=== PATIENT | female | born 1990 | race Caucasian/White ===

== ENCOUNTER 2017-12-16 19:51 | Inpatient (IN) | payer OTHER ==
[2017-12-16] MEDS ORDERED: NACL 0.9% 3 ML SYG IV (21:00)
[2017-12-16] MEDS ORDERED: ALBUTEROL/IPRATROPIUM (NEB) 3 ML AMP HHN (21:00)
[2017-12-16] MEDS: DEXTROSE 5%-0.45% NACL 1,000 ML IV (21:37)
[2017-12-16] MEDS: FAMOTIDINE 20 MG INJ IV (21:45)
[2017-12-16] MEDS: metroNIDAZOLE 500 MG/NS (PMX) 100 ML IVPB (21:46)
[2017-12-16] MEDS: CIPROFLOXACIN 400MG/D5W 200 ML IVPB (22:42)
[2017-12-16] MEDS: ONDANSETRON 4 MG INJ IV (23:53)
[2017-12-16] MEDS: morphine 2 MG INJ IV (23:54)
[2017-12-16 23:58] LABS: ADD UMIC YES; UR ASCORBIC ACID NEGATIVE (NEGATIVE); UR BILIRUBIN (Dip) NEGATIVE (NEGATIVE); UR BLOOD (Dip) NEGATIVE (NEGATIVE); UR CLARITY CLEAR (CLEAR); UR COLOR YELLOW (YELLOW); UR GLUCOSE (Dip) NEGATIVE (NEGATIVE); UR KETONES (Dip) NEGATIVE (NEGATIVE); UR LEUKOCYTE ESTERASE (Dip) TRACE Leu/ul (NEGATIVE); UR NITRITE (Dip) NEGATIVE (NEGATIVE); UR RBC 2 /HPF (0-5); UR SQUAMOUS EPITHELIAL CELL FEW /HPF (FEW); UR TOTAL PROTEIN (Dip) NEGATIVE (NEGATIVE); UR UROBILINOGEN (Dip) NEGATIVE (NEGATIVE); UR WBC 0 /HPF (0-5)
[2017-12-17 05:14] LABS: ADD MAN DIFF? NO
[2017-12-17 05:28] LABS: WHITE BLOOD COUNT 8.3 10^3/ul (4.8-10.8)
[2017-12-17 05:28] LABS: BASOPHILS % 0.5 % (0.0-2.0); EOSINOPHILS # 0.4 10^3/ul (0.0-0.5); EOSINOPHILS % 4.2 % (0.0-7.0); HEMATOCRIT 40.7 % (37.0-47.0); HEMOGLOBIN 13.2 g/dl (12.0-16.0); LYMPHOCYTES # 2.3 10^3/ul (0.8-2.9); LYMPHOCYTES % 28.2 % (15.0-51.0); MEAN CORPUSCULAR HEMOGLOBIN 28.1 pg (29.0-33.0); MEAN CORPUSCULAR HGB CONC 32.4 g/dl (32.0-37.0); MEAN CORPUSCULAR VOLUME 86.6 fl (82.0-101.0); MEAN PLATELET VOLUME 10.5 fl (7.4-10.4); MONOCYTE # 0.6 10^3/ul (0.3-0.9); MONOCYTES % 6.8 % (0.0-11.0); NEUTROPHILS % 60.1 % (39.0-77.0); PLATELET COUNT 262 10^3/UL (140-415); RED CELL DISTRIBUTION WIDTH 12.5 % (11.5-14.5)
[2017-12-17] MEDS: metroNIDAZOLE 500 MG/NS (PMX) 100 ML IVPB (05:50)
[2017-12-17 06:13] LABS: ALANINE AMINOTRANSFERASE 47 IU/L (13-69); ALBUMIN/GLOBULIN RATIO 1.37; ALKALINE PHOSPHATASE 88 IU/L (42-121); ANION GAP 15 (8-16); ASPARTATE AMINO TRANSFERASE 27 IU/L (15-46); BILIRUBIN,INDIRECT 0.6 mg/dl (0-1.1); BILIRUBIN,TOTAL 0.6 mg/dl (0.2-1.3); BLOOD UREA NITROGEN 10 mg/dl (7-20); CALCIUM 8.3 mg/dl (8.4-10.2); CARBON DIOXIDE 28 mmol/L (21-31); CHLORIDE 101 mmol/L (97-110); CREATININE 0.68 mg/dl (0.44-1.00); GLUCOSE 99 mg/dl (70-220); MAGNESIUM 1.9 mg/dl (1.7-2.5); SODIUM 140 mmol/L (135-144); TOTAL PROTEIN 6.9 g/dl (6.1-8.1)
[2017-12-17] MEDS: DEXTROSE 5%-0.45% NACL 1,000 ML IV ×3 (07:00→22:31)
[2017-12-17] MEDS: FAMOTIDINE 20 MG INJ IV ×2 (08:20→20:20)
[2017-12-17] MEDS: ERTAPENEM SODIUM 1 GM in SOD CHLORIDE 0.9% 100 ML IVPB (12:14)
[2017-12-17] MEDS: SOD CHLORIDE 0.9% 100 ML (13:33)
[2017-12-17] MEDS: IOHEXOL 300MG/ML 150 ML BTL (13:33)
[2017-12-18 05:15] LABS: ADD MAN DIFF? NO
[2017-12-18 05:19] LABS: WHITE BLOOD COUNT 8.6 10^3/ul (4.8-10.8)
[2017-12-18 05:19] LABS: BASOPHIL # 0.1 10^3/ul (0.0-0.1); BASOPHILS % 0.7 % (0.0-2.0); EOSINOPHILS # 0.4 10^3/ul (0.0-0.5); EOSINOPHILS % 4.4 % (0.0-7.0); HEMATOCRIT 40.6 % (37.0-47.0); HEMOGLOBIN 13.2 g/dl (12.0-16.0); LYMPHOCYTES # 1.8 10^3/ul (0.8-2.9); LYMPHOCYTES % 20.7 % (15.0-51.0); MEAN CORPUSCULAR HGB CONC 32.5 g/dl (32.0-37.0); MEAN PLATELET VOLUME 10.4 fl (7.4-10.4); MONOCYTE # 0.6 10^3/ul (0.3-0.9); MONOCYTES % 6.8 % (0.0-11.0); NEUTROPHIL # 5.8 10^3/ul (1.6-7.5); NEUTROPHILS % 66.9 % (39.0-77.0); PLATELET COUNT 276 10^3/UL (140-415); RED BLOOD COUNT 4.72 10^6/ul (4.20-5.40); RED CELL DISTRIBUTION WIDTH 12.4 % (11.5-14.5)
[2017-12-18 05:33] LABS: ANION GAP 17 (8-16); BLOOD UREA NITROGEN 8 mg/dl (7-20); CALCIUM 8.7 mg/dl (8.4-10.2); CARBON DIOXIDE 26 mmol/L (21-31); CHLORIDE 102 mmol/L (97-110); CREATININE 0.65 mg/dl (0.44-1.00); GLUCOSE 102 mg/dl (70-220); POTASSIUM 3.9 mmol/L (3.5-5.1); SODIUM 141 mmol/L (135-144)
[2017-12-18] MEDS: FAMOTIDINE 20 MG INJ IV ×2 (08:26→21:04)
[2017-12-18] MEDS: ERTAPENEM SODIUM 1 GM in SOD CHLORIDE 0.9% 100 ML IVPB (12:30)
[2017-12-18] MEDS ORDERED: morphine LIQ (10 MG/5 ML) CUP PO (15:00)
[2017-12-18] MEDS: DEXTROSE 5%-0.45% NACL 1,000 ML IV ×2 (15:13→23:00)
[2017-12-19 06:24] LABS: CHOLESTEROL 127 mg/dl (100-200)
[2017-12-19 06:24] LABS: CHOL/HDL RATIO 3.5 RATIO; HDL CHOLESTEROL 36 mg/dl (33-83); LDL CHOLESTEROL,CALCULATED 77 mg/dl; TRIGLYCERIDES 70 mg/dl (0-149)
[2017-12-19 07:10] LABS: HEMOGLOBIN A1C 5.7 % (0-5.9)
[2017-12-19] MEDS: DEXTROSE 5%-0.45% NACL 1,000 ML IV (08:23)
[2017-12-19] MEDS: FAMOTIDINE 20 MG INJ IV (08:24)
[2017-12-19] MEDS: ERTAPENEM SODIUM 1 GM in SOD CHLORIDE 0.9% 100 ML IVPB (11:04)
== END 2017-12-19 15:40 | disposition home or self-care (01) | DRG 392 ==
LOC: MS1 19:51
DX: K57.92 Diverticulitis of intestine, part unspecified, without perforation or abscess without bleeding (principal); N39.0 Urinary tract infection, site not specified; Z68.41 Body mass index [BMI] 40.0-44.9, adult; E66.9 Obesity, unspecified; K80.20 Calculus of gallbladder without cholecystitis without obstruction
CPT/HCPCS: 74177; 80048; 80053; 80061; 81001; 83036; 83735; 84100; 84703; 85025; 87040; 87045; 87075; 87086